=== PATIENT | male | born 1990 | race Caucasian/White ===

== ENCOUNTER 2016-09-27 13:06 | Emergency (ER) | payer OTHER ==
[2016-09-27 13:15] VITALS: BP 120/83
--- NOTE | 2016-09-28 04:56 | ED ---
Elena Rice Thomas, scribed for Sonya Caba MD on 09/27/16 at 1339 . Skin Complaint - HPI Summary HPI Summary: The pt is a 26 y/o M presenting to the ED s/p fyrite exposure to his bilateral forearms and L bicep today at 12:30. He was handling fyrite that was under pressure when a cap was bumped, causing the exposure. At the scene of the exposure, he irrigated the affected region with water for 10-15 minutes. He was wearing goggles, so there is no chance of eye exposure. He denies any ingestion of the fyrite. He was wearing latex gloves, so there is no chance of hand exposure. He takes melatonin occasionally. He denies any pain at this time. PMHx : otherwise healthy. PSHx: none. 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 FHx: HTN. Prior to evaluation of patient, poison control was called. They said that fyrite exposure only needs to be irritated with water. - History of Current Complaint Chief Complaint: EDGeneral Time Seen by Provider: 09/27/16 13:31 Stated Complaint: CHEMICAL EXPOSURE EVAUATION Hx Obtained From: Patient Onset/Duration: Started Hours Ago - 12:30 today, Resolved Skin Exposure Onset/Duration: Hours Ago Timing: Constant Onset Severity: Mild Current Severity: Mild Pain Intensity: 0 Pain Scale Used: 0-10 Numeric Skin Location: Arm - bilat forearm, L bicep Aggravating Symptom(s): Nothing Alleviating Symptom(s): Nothing Associated Signs & Symptoms: Rash, Tenderness Related History: Other: - POS: fyrite exposure - Allergy/Home Medications Allergies/Adverse Reactions: Allergies Allergy/AdvReac Type Severity Reaction Status Date / Time No Known Allergies Allergy Verified 06/10/16 13:23 PMH/Surg Hx/FS Hx/Imm Hx Previously Healthy: Yes Endocrine/Hematology History: Denies: Hx Diabetes Cardiovascular History: Denies: Hx Hypertension, Hx Pacemaker/ICD History: Denies: Hx Renal Disease Sensory History: Denies: Hx Hearing Aid Psychiatric History: Denies: Hx Panic Disorder Infectious Disease History: Denies: Traveled Outside the [place] in Last 30 Days - Family History Known Family History: Positive: Hypertension - Social History Occupation: Student Lives: Retirement - with 5 roomates Alcohol Use: Occasionally Substance Use Type: Reports: Marijuana - occasional Hx Tobacco Use: No Review of Systems Constitutional: Negative Negative: Fever Eyes: Negative ENT: Negative Cardiovascular: Negative Respiratory: Negative Gastrointestinal: Negative Genitourinary: Negative Musculoskeletal: Negative Positive: Rash - to bilateral forearms and L bicep Neurological: Negative Psychological: Normal All Other Systems Reviewed And Are Negative: Yes Physical Exam Triage Information Reviewed: Yes Vital Signs On Initial Exam: Initial Vitals Temp Pulse Resp BP Pulse Ox 98 F 60 17 120/83 100 09/27/16 13:11 09/27/16 13:11 09/27/16 13:11 09/27/16 13:11 09/27/16 13:11 Vital Signs Reviewed: Yes Appearance: Positive: Well-Appearing, No Pain Distress, Well-Nourished Skin: Positive: Warm, Skin Color Reflects Adequate Perfusion, Other - erythematous Rash to bilateral forearms and L bicep Head/Face: Positive: Normal Head/Face Inspection Eyes: Positive: Normal ENT: Positive: Normal ENT inspection Neck: Positive: Supple Respiratory/Lung Sounds: Positive: Clear to Auscultation, Breath Sounds Present , Other - No respiratory distress Cardiovascular: Positive: RRR, Pulses are Symmetrical in both Upper and Lower Extremities, Other - Brisk cap refill. Negative: Rub Abdomen Description: Positive: Nontender, No Organomegaly, Soft. Negative: Distended, Guarding, Hepatomegaly, McBurney's Point Tenderness, Peritoneal Signs , Splenomegaly Bowel Sounds: Positive: Present Musculoskeletal: Positive: Strength/ROM Intact, Other - redness to forearms and left bicep Neurological: Positive: Sensory/Motor Intact, Alert, Oriented to Person Place, Time, Speech Normal Psychiatric: Positive: Normal Diagnostics - Vital Signs Vital Signs Temp Pulse Resp BP Pulse Ox 09/27/16 13:11 98 F 60 17 120/83 100 - Laboratory Lab Statement: Any lab studies that have been ordered have been reviewed, and results considered in the medical decision making process. Course/Dx - Course Assessment/Plan: The pt is a 26 y/o M presenting to the ED s/p fyrite exposure to his bilateral forearms and L bicep today at 12:30. He was handling fyrite that was under pressure when a cap was bumped, causing the exposure. At the scene of the exposure, he irrigated the affected region with water for 10-15 minutes. He was wearing goggles, so there is no chance of eye exposure. He denies any ingestion of the fyrite. He was wearing latex gloves, so there is no chance of hand exposure. He takes melatonin occasionally. He denies any pain at this time. PMHx: otherwise healthy. PSHx: none. 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 FHx: HTN. Prior to evaluation of patient, poison control was called. Poison control said that fyrite exposure only needs to be irritated with water. Patients medication reviewed this visit. Patient is diagnosed with chemical skin burn. Patient will be discharged. Patient is agreeable with this plan. - Differential Diagnoses - Skin Complaint Differential Diagnoses: Allergic Reaction, Contact Dermatitis, Other - chemical burn - Diagnoses Provider Diagnoses: Superficial chemical burn of left forearm, Superficial chemical burn of right forearm, Superficial chemical burn of left upper arm Discharge - Discharge Plan Condition: Stable Disposition: HOME Patient Education Materials: Chemical Skin Burn (ED) Forms: *Work Release Referrals: Damaris Sue NP [Primary Care Provider] - Additional Instructions: Poison control has assured us that no further care is needed after your exposure to Fyrite today, after your water decontamination. Return to the ED if you have any new or worsening symptoms. The documentation as recorded by the Elena fuller Thomas accurately reflects the service I personally performed and the decisions made by , Sonya Caba MD.
== END 2016-09-27 14:20 | disposition home or self-care (01) ==
LOC: ED 13:06
DX: T22.012A Burn of unspecified degree of left forearm, initial encounter (principal); T22.011A Burn of unspecified degree of right forearm, initial encounter; T22.00XA Burn of unspecified degree of shoulder and upper limb, except wrist and hand, unspecified site, initial encounter; R21 Rash and other nonspecific skin eruption; T79.9XXA Unspecified early complication of trauma, initial encounter; X08.8XXA Exposure to other specified smoke, fire and flames, initial encounter; Y93.9 Activity, unspecified; Y92.9 Unspecified place or not applicable
CPT/HCPCS: 99281

== ENCOUNTER 2018-02-18 10:57 | Day surgery (SDC) | payer OTHER ==
[~2018-02-18 10:57] MED LIST: Buffered Lidocaine 0.9% SYRIN* 5 ML/SYR SYRINGE INTRADERM ONE; Lactated Ringers 1000 ML Bag* 1,000 ML IV SCH
[2018-02-18] MEDS ORDERED: ceFAZolin 2 GM PREMIX in ORs 2 GM/50 ML BAG IVPB ONE (11:44)
[2018-02-18] MEDS ORDERED: fentaNYL* 50 MCG/ML 2 ML VIAL (100 MCG VIAL) ONE (12:43)
[2018-02-18] MEDS ORDERED: Midazolam* 1 MG/ML 2 ML VIAL (2 MG) ONE (12:43)
[2018-02-18] MEDS ORDERED: Bupivacaine 0.25% SDV PF* 10 ML VIAL INJ ONE (13:10)
[2018-02-18] MEDS ORDERED: Lidocaine 2% PF * 5 ML VIAL ONE (13:37)
[2018-02-18] MEDS ORDERED: Ondansetron INJ* 2 MG/ML VIAL ONE (13:37)
[2018-02-18] MEDS ORDERED: Dexamethasone IV* 4 MG/ML 1 ML (4 MG) ONE (13:37)
[2018-02-18] MEDS ORDERED: Propofol* 10 MG/ML 20 ML BTL ONE (13:37)
[2018-02-18] MEDS ORDERED: fentaNYL* 50 MCG/ML 2 ML VIAL (100 MCG VIAL) IV PRN (13:52)
[2018-02-18] MEDS ORDERED: PROCHLORPERAZINE INJ 5 MG/ML 2 ML VIAL IV PRN (13:52)
[2018-02-18] MEDS ORDERED: HYDROmorphone INJ1* 1 MG/ML SYRINGE IV PRN (13:52)
[2018-02-18] MEDS ORDERED: Naloxone* 0.4 MG/ML 1 ML VIAL IV PRN (13:52)
[2018-02-18] MEDS ORDERED: Metoclopramide IV* 5 MG/ML 2 ML VIAL IV PRN (13:52)
[2018-02-18] MEDS ORDERED: Acetaminophen TAB* 325 MG PO PRN (13:52)
[2018-02-18] MEDS ORDERED: Ketorolac INJ* 30 MG/ML 1 ML VIAL IV PRN (13:52)
--- NOTE | 2018-02-18 14:45 | OP ---
Operative Report - Blank - Operative Report Date of Operation: 02/18/18 Note: PATIENT: Miki Allan DATE OF : 1990 DATE OF SURGERY: 02/18/2018 SURGEON: Gaetano Isbell MD NAIL TECH: VICKI Whyte, whos assistance was necessary for positioning, retraction, help with instrumentation, and closure. ANESTHESIOLOGIST: Kanchan Booth MD PREOPERATIVE DIAGNOSIS: Right foot painful accessory navicular POSTOPERATIVE DIAGNOSIS: Right foot painful accessory navicular OPERATION: Right foot Kidner procedure with excision of accessory navicular with advancement of the posterior tibial tendon ANESTHESIA: General LMA IMPLANTS: Arthrex Suturetak x2 TOURNIQUET TIME: Less than one hour, with a well-padded thigh tourniquet at 250 mmHg SPECIMENS: Accessory navicular bone to pathology ESTIMATED BLOOD LOSS: Minimal COMPLICATIONS: none STATUS: Stable from the operating room to the recovery room and then home. INDICATIONS FOR PROCEDURE: Miki has a painful accessory navicular bone. Both operative and non operative treatment alternatives were reviewed. Further, the nature and risks of surgery were reviewed in careful detail, in the office as well as the pre-operative holding area. Our discussions regarding the risks of surgery included, but were not limited to, infection, wound problems, nerve injury, neuroma, RSD, persistent symptoms, blood clot, failure of the surgery, and even the remote chance of catastrophic complication, including loss of limb. DESCRIPTION OF PROCEDURE: The patient was seen in the preoperative holding unit and informed written consent was obtained. The appropriate extremity was marked. The patient was then brought to the operating room and carefully positioned on the operating room table. Anesthesia was induced. All bony prominences were padded with great care. A well-padded thigh tourniquet was placed. A chlorhexidine based pre- scrub was performed followed by a chloraprep prep and drape in standard sterile fashion. A surgical safety pause was then conducted in which we confirmed the appropriate patient, extremity, planned procedure, availability of equipment, indication and administration of prophylactic antibiotics, and DVT prophylaxis in the form of a compression boot on the non-surgical extremity. We began with Esmarch exsanguination of the limb and inflated the tourniquet. A medial longitudinal incision was made centered at the medial prominence of the navicular. Careful blunt dissection was taken down to the layer of the posterior tibial tendon and periosteum. This layer was defined. An incision was made at the superior edge of the posterior tibial tendon and this was reflected in a subperiosteal manner plantarly. The periosteum superiorly was also reflected in a subperiosteal manner so as to expose the entire medial navicular. A small straight osteotome was then used to excise the accessory navicular as well as the prominent navicular medially. The edges were smoothed with a Rongeur and then the exposed cancellous bed was smooth with a rasp. No prominence was felt directly and also the soft tissues were provisionally tacked closed, and no prominence was felt on the skin. Fluoroscopy was then used to confirm adequate resection. Copious irrigation was then performed. Two Arthrex suturetaks were then placed under fluoroscopic guidance into the navicular. These had excellent purchase and I was able to lift the foot off the bed by pulling on the sutures. These sutures were then placed through the posterior tibial tendon and periosteum in a horizontal mattress fashion so as to advance the posterior tibial tendon to the new medial edge of the navicular bone. A 0 Vicryl suture was then used to perform a [id number] repair of the periosteum and posterior tibial tendon. At this point, we irrigated copiously and then closed in layers meticulously utilizing 3-0 Monocryl and 3-0 Nylon for the skin. A sterile dressing was then applied followed by a splint with the ankle in neutral position. The patient was then awakened from anesthesia and transferred to the recovery room in stable condition. There were no complications. All needle and sponge counts were correct at the end of the case. ATTESTATION: I attest I was present and scrubbed and performed the critical portions of the procedure myself. POSTOPERATIVE PLAN: Follow up will be in 2 weeks for likely suture removal and transition to a [id number]-[id number] short leg cast. We will plan on 6 weeks of lqu-kffotw-oeaozua and immobilization.
[2018-02-18 15:29] VITALS: BP 110/59
== END 2018-02-18 16:02 | disposition home or self-care (01) ==
LOC: OR 10:57
PROVIDERS: ATTEND Orthopaedic Surgery
DX: Q66.89 Other specified congenital deformities of feet (principal); I73.00 Raynaud's syndrome without gangrene; R55 Syncope and collapse
CPT/HCPCS: 88304; 88311; C1713; J0690; J1100; J2250; J2405; J2704; J3010; J3490

== ENCOUNTER 2018-10-10 07:03 | Emergency (ER) | payer OTHER ==
[2018-10-10 07:15] VITALS: BP 00/00
[2018-10-10] MEDS ORDERED: Rabies VIRUS VACCINE (RabAvert)* 2.5 UNITS VIAL IM ONE (07:21)
--- NOTE | 2018-10-10 07:26 | UC ---
Bite Injury/Animal HPI - HPI Summary HPI Summary: 28 yo male here for rabies shot Day #3 no complaints bat in bedroom - History of Current Complaint Chief Complaint: UCGeneralIllness Stated Complaint: POST EXPOSURE Time Seen by Provider: 10/10/18 07:14 Hx Obtained From: Patient Pain Intensity: 0 Pain Scale Used: 0-10 Numeric Onset/Duration: Other - NA Type of Bite: Animal - no bite noted, bat in Bed room Has Animal Been Immunized?: No Associated Signs And Symptoms: Positive: Negative Animal Available for Observation: No - Allergies/Home Medications Allergies/Adverse Reactions: Allergies Allergy/AdvReac Type Severity Reaction Status Date / Time No Known Allergies Allergy Verified 02/18/18 11:51 PMH/Surg Hx/FS Hx/Imm Hx Previously Healthy: Yes - Surgical History Surgical History: Yes Surgery Procedure, Year, and Place: 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 - Family History Known Family History: Positive: Hypertension - Social History Alcohol Use: Occasionally Alcohol Amount: 3-4 per week Substance Use Type: Marijuana Substance Use Comment - Amount & Last Used: 2x per week Smoking Status (MU): Never Smoked Tobacco Review of Systems All Other Systems Reviewed And Are Negative: Yes Constitutional: Positive: Negative Skin: Positive: Negative Eyes: Positive: Negative ENT: Positive: Negative Respiratory: Positive: Negative Cardiovascular: Positive: Negative Gastrointestinal: Positive: Negative Genitourinary: Positive: Negative Motor: Positive: Negative Neurovascular: Positive: Negative Musculoskeletal: Positive: Myalgia - thighs sore from TIG Neurological: Positive: Negative Psychological: Positive: Negative Physical Exam Triage Information Reviewed: Yes Appearance: Well-Appearing, No Pain Distress, Well-Nourished Vital Signs: Initial Vital Signs Temp 97.2 F 10/10/18 07:10 Pulse 57 10/10/18 07:10 Resp 16 10/10/18 07:10 BP 00/00 10/10/18 07:10 Pulse Ox 98 10/10/18 07:10 Vital Signs Reviewed: Yes Eyes: Positive: Conjunctiva Clear ENT: Positive: Hearing grossly normal. Negative: Nasal congestion, Nasal drainage, Trismus, Muffled voice, Hoarse voice Neck: Positive: Supple, Nontender, No Lymphadenopathy Respiratory: Positive: Lungs clear, Normal breath sounds, No respiratory distress Cardiovascular: Positive: RRR, No Murmur Musculoskeletal: Positive: ROM Intact, No Edema Neurological: Positive: Alert Psychological Exam: Normal Skin Exam: Normal Bite Injury Course/Dx - Differential Dx/Diagnosis Provider Diagnosis: Exposure to bat without known bite Discharge - Sign-Out/Discharge Documenting (check all that apply): Patient Departure All imaging exams completed and their final reports reviewed: No Studies - Discharge Plan Condition: Stable Disposition: HOME Patient Education Materials: Rabies Vaccine (By injection) Referrals: Janell Huang [Primary Care Provider] - Additional Instructions: follow up at [facility] as planned - Billing Disposition and Condition Condition: STABLE Disposition: Home
== END 2018-10-10 08:11 | disposition home or self-care (01) ==
LOC: UCEAST 07:03
DX: Z29.14 Encounter for prophylactic rabies immune globulin (principal)
CPT/HCPCS: 90471; 90675; 99211; G0463

== ENCOUNTER 2019-04-27 17:05 | Emergency (ER) | payer OTHER ==
--- OUTSIDE RECORDS SUMMARY | 2019-04-27 17:18 | XMS REPORT | Continuity of Care Document ---
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 Active Problems Provider Date Arthralgia of the pelvic region and thigh Gaetano Isbell MD Onset: 04/06/2019 Patellar tendonitis Gaetano Isbell MD Onset: 04/06/2019 Other specified congenital deformities of feet Gaetano Isbell MD Onset: 01/15 Dislocation of proximal interphalangeal joint of Dixon Castellano MD Onset: right ring finger, subsequent encounter Social History Type Date Description Comments Sex Unknown Smokeless Tobacco Never Used Smokeless Tobacco ETOH Use Occasionally consumes alcohol Tobacco Use Start: Unknown Patient has never smoked Recreational Drug Use Sporadically uses Marijuana Smoking Status Reviewed: 04/13/19 Patient has never smoked Exercise Type/Frequency Exercises regularly Allergies, Adverse Reactions, Alerts Description No Known Drug Allergies Medications Active Medications SIG Qnty Indications Ordering Provider Date Melatonin 3 mg as needed Unknown Immunizations Description No Information Available Vital Signs Date Vital Result Comment 04/13/2019 9:49am Height 72 inches 6'0" Weight 180.00 lb Heart Rate 50 /min BP Systolic 122 mmHg BP Diastolic 84 mmHg Respiratory Rate 12 /min Body Temperature 98.2 F Pain Level 1 BMI (Body Mass Index) 24.4 kg/m2 04/06/2019 2:34pm Height 72 inches 6'0" Weight 180.00 lb Heart Rate 64 /min Respiratory Rate 18 /min Pain Level 5 BMI (Body Mass Index) 24.4 kg/m2 Results Description No Information Available Procedures Description No Information Available Medical Devices Description No Information Available Encounters Type Date Location Provider Dx Diagnosis Office Visit 04/06/2019 [facility] Gaetano Isbell, M76.52 Patellar 2:30p at [place] tendinitis, left knee M25.552 Pain in left hip Assessments Date Code Description Provider 04/06/2019 M76.52 Patellar tendinitis, left knee Gaetano Isbell MD 04/06/2019 M25.552 Pain in left hip Gaetano Isbell MD Plan of Treatment No Information Available Functional Status Description No Information Available Mental Status Description No Information Available Referrals Description No Information Available
--- OUTSIDE RECORDS SUMMARY | 2019-04-27 17:18 | XMS REPORT | Continuity of Care Document ---
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 Active Problems Provider Date Arthralgia [...] Use Sporadically uses Marijuana Smoking Status Reviewed: 04/06/19 Patient has never smoked Exercise Type/Frequency Exercises regularly Allergies, Adverse Reactions, Alerts Description No Known Drug Allergies Medications Active Medications SIG Qnty Indications Ordering Provider Date Melatonin 3 mg as needed Unknown Immunizations Description No Information Available Vital Signs Date Vital Result Comment 04/06/2019 2:34pm Height 72 inches 6'0" Weight 180.00 lb Heart Rate 64 /min Respiratory Rate 18 /min Pain Level 5 BMI (Body Mass Index) 24.4 kg/m2 07/20/2018 8:51am Height 72 inches 6'0" Weight 175.00 lb Heart Rate 52 /min Respiratory Rate 14 /min Body Temperature 95.9 F BMI (Body Mass Index) 23.7 kg/m2 Results Description No Information Available Procedures Description No Information Available Medical Devices Description No Information Available Encounters Description No Information Available Assessments Date Code Description Provider 04/06/2019 M76.52 Patellar tendinitis, left knee Gaetano Isbell MD 04/06/2019 M25.552 Pain in left hip Gaetano Isbell MD Plan of Treatment 04/06/2019 - Gaetano Isbell, MDM76.52 Patellar tendinitis, left kneeFollow up: Follow Up: after testing / imaging is [id number] Pain in left hip Functional Status Description No Information Available Mental Status Description No Information Available Referrals Description No Information Available
--- NOTE | 2019-04-27 19:30 | ED ---
Throat Pain/Nasal Congestion - HPI Summary HPI Summary: 28 year old M arriving via private car to [facility] complains of blurred vision in bilateral eyes which started while going back to work from the gym today 2019 1550. Patient noticed that he wasn't able to read text messages on his phone. He states this episode lasted for 30-40 minutes. Patient also developed pressure in the back and left side of his head with the blurred vision. He states the headache has worsened since initial onset. Patient additionally complains of nausea/diarrhea x1 week. Patient denies cough, fever, chills, vomiting, abdominal pain, decreased appetite. He states his close friends have been diagnosed with influenza recently. The patient rates the pain 3/10 in severity. Symptoms aggravated by nothing. Symptoms alleviated by nothing. Medications reviewed. He states he takes melatonin 4-5 times a week and ibuprofen as needed. Patient did not take any ibuprofen today or any melatonin last night. He does not take any exercise supplements. He drinks 2 cups of coffee daily. Admits to marijuana. No tobacco. Occasional alcohol. Denies PMHx. FHx hypertension. Right foot surgery. He states he seeps 7 hours every night. No recent weight change. - History of Current Complaint Chief Complaint: EDEyeProblem Time Seen by Provider: 04/27/19 19:22 Hx Obtained From: Patient Onset/Duration: Lasting Minutes - 30-40, Resolved Severity: Mild - Allergies/Home Medications Allergies/Adverse Reactions: Allergies Allergy/AdvReac Type Severity Reaction Status Date / Time No Known Allergies Allergy Verified 04/27/19 17:13 Home Medications: Home Medications Melatonin 3 mg PO BEDTIME PRN 02/11/18 [History Confirmed 04/27/19] Ibuprofen TAB* [Motrin TAB* 600 MG] 600 mg PO Q6H PRN 10/31/18 [History Confirmed 04/27/19] PMH/Surg Hx/FS Hx/Imm Hx Endocrine/Hematology History: Denies: Hx Diabetes, Hx Thyroid Disease Cardiovascular History: Denies: Hx Hypertension, Hx Pacemaker/ICD Respiratory History: Reports: Other Respiratory Problems/Disorders - 2017 pneumonia Denies: Hx Asthma, Hx Chronic Obstructive Pulmonary Disease (COPD) GI History: Reports: Hx Crohn's Disease - not diagnosed, Hx Irritable Bowel - possible, not diagnosed Denies: Hx Ulcer History: Denies: Hx Renal Disease Sensory History: Reports: Hx Contacts or Glasses - contacts Denies: Hx Hearing Aid Opthamlomology History: Reports: Hx Contacts or Glasses - contacts Psychiatric History: Denies: Hx Panic Disorder - Surgical History Surgery Procedure, Year, and Place: 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 Hx Anesthesia Reactions: No Infectious Disease History: No Infectious Disease History: Denies: Hx Hepatitis, Hx Human Immunodeficiency Virus (HIV), Traveled Outside the [place] in Last 30 Days - Family History Known Family History: Positive: Hypertension - Social History Alcohol Use: Weekly Alcohol Amount: 3-4 per week Hx Substance Use: Yes Substance Use Type: Reports: Marijuana Substance Use Comment - Amount & Last Used: 2-3x per week Hx Tobacco Use: No Smoking Status (MU): Never Smoked Tobacco Review of Systems - ROS Summary Review of Systems Summary: Home Medications Medication Instructions Recorded Confirmed Type Melatonin 3 mg PO BEDTIME PRN 02/11/18 04/27/19 History Ibuprofen TAB* [Motrin TAB* 600 MG] 600 mg PO Q6H PRN 10/31/18 04/27/19 History Negative: Fever, Chills Positive: Blurred Vision Negative: Cough Gastrointestinal: Negative - decreased appetite Positive: Diarrhea, Nausea. Negative: Abdominal Pain, Vomiting Positive: Headache All Other Systems Reviewed And Are Negative: Yes Physical Exam - Summary Physical Exam Summary: General: Well-developed, Well-nourished MALE. No acute distress. He is mildly anxious appearing. HEENT: Normocephalic, Atraumatic. Eyes: Conjuctiva normal, PERRL. Oropharynx: Clear, mucous membranes moist, (-) exudates. Neck: Soft, FROM, (-) lymphadenopathy, (-) thyromegaly, (-) JVD. Cardiovascular: Normal sinus rhythm, (-) murmur. Lungs: Clear to auscultation bilaterally (-) wheezes, (-) rales, (-) rhonchi. Abdomen: Soft, non-tender, non-distended, (-) organomegaly, normal bowel sounds. Back: (-) CVA tenderness Extremities: No edema. Skin: Warm, dry, (-) rash. Neuro: Alert and oriented x3, moves all extremities equally. No ataxia. No gait disturbance. No sensory deficit. Normal strength, normal sensation. Psychiatric: Mood normal, affect normal. Triage Information Reviewed: Yes Vital Signs On Initial Exam: Initial Vitals Temp Pulse Resp BP Pulse Ox 98.3 F 77 17 120/84 100 04/27/19 17:07 04/27/19 17:07 04/27/19 17:07 04/27/19 17:07 04/27/19 17:07 Vital Signs Reviewed: Yes Procedures - Sedation Patient Received Moderate/Deep Sedation with Procedure: No Diagnostics - Vital Signs Vital Signs Temp Pulse Resp BP Pulse Ox 04/27/19 18:37 76 97 04/27/19 17:07 98.3 F 77 17 120/84 100 - Laboratory Result Diagrams: 04/27/19 20:52 04/27/19 20:52 Lab Statement: Any lab studies that have been ordered have been reviewed, and results considered in the medical decision making process. - CT Brain CT Interpretation Completed By: Radiologist - No acute intracranial abnormality. ED physician has reviewed this imaging report. Re-Evaluation - Re-Evaluation First Eval Re-Evaluation Time: 21:59 Comment: I have discussed results with the patient and his headache has resolved. Discussed symptoms that warrant immediate return to ED. EENT Course/Dx - Course Course Of Treatment: 28-year-old male presents with complaints of visual loss and head pressure. After working out at the gym he went to leave and go back to his office. Certainly had part of his vision go blank. He states it was on the right side but if he closed his right eye he maintained a defect to the right even with his left eye. He states that lasted about 20 minutes or so. He did have pressure in his left posterior head at the same time. When the visual disturbance left his pressure in his head got worse. He did not take anything for it. Never had anything like this before. He has had mild illness recently including nausea and diarrhea. States he's been around people with the flu." Physical exam he has no obvious visual field defects at this time. Pupils equal round reactive to light, extraocular muscles intact. no papilledema. No other neurological findings. Workup demonstrates no significant laboratory abnormalities. CT brain normal. Patient was given ibuprofen and Zofran. Complete resolution of his headache. Patient discharged home. Follow up PCP. Follow-up sooner for any worsening symptoms. - Diagnoses Provider Diagnoses: Migraine with visual aura Discharge ED - Sign-Out/Discharge Documenting (check all that apply): Patient Departure - Discharge Plan Condition: Stable Disposition: HOME Patient Education Materials: Migraine Headache (ED) Referrals: Janell Huang [Primary Care Provider] - 3 Days Additional Instructions: Please follow up with your primary care physician within 3 days. Please return to Emergency Department immediately if symptoms return or for any new or worsening symptoms. - Billing Disposition and Condition Condition: STABLE Disposition: Home - Attestation Statements Document Initiated by Scribe: Yes Documenting Scribe: Delma Cardona Provider For Whom Eladio is Documenting (Include Credential): Qing Brewer MD Scribe Attestation: Delma Rice, scribed for Qing Brewer MD on 04/28/19 at 0247. Scribe Documentation Reviewed: Yes Provider Attestation: The documentation as recorded by the Delma fuller accurately reflects the service I personally performed and the decisions made by , Qing Brewer MD Status of Scribe Document: Viewed
[2019-04-27] MEDS ORDERED: Ondansetron ODT TAB* 4 MG SL PRN (20:25)
[2019-04-27] MEDS ORDERED: Ibuprofen TAB* 400 MG PO ONE (20:25)
[2019-04-27 20:59] LABS: ABS Basophils 0.1 10^3/ul (0-0.2); ABS Eosinophils 0.2 10^3/ul (0-0.6); ABS Lymphocytes 2.1 10^3/ul (1.0-4.8); ABS Monocytes 0.6 10^3/ul (0-0.8); Eosinophil % 2.4 %; Hematocrit 47 % (42-52); Hemoglobin 16.6 g/dL (14.0-18.0); Lymphocyte % 30.3 %; Mean Corpuscular HGB Conc 35 g/dL (31-36); Mean Corpuscular Hemoglobin 31 pg (27-31); Mean Corpuscular Volume 88 fL (80-94); Mean Platelet Volume 7.9 fL (7.4-10.4); Platelet Count 208 10^3/uL (150-450); Red Blood Count 5.34 10^6 /uL (4.18-5.48); Red Cell Distribution Width 13 % (10-15); White Blood Count 6.9 10^3/uL (3.5-10.8)
[2019-04-27 21:04] LABS: INR 1.27 (0.82-1.09)
[2019-04-27 21:15] LABS: Albumin 5.1 g/dL (3.2-5.2); Albumin/Globulin Ratio 2.1 (1-3); EGFR African American 117.4 (>60); Globulin 2.4 g/dL (2-4); Potassium 3.3 mmol/L (3.5-5.0); Total Bilirubin 0.8 mg/dL (0.2-1.0); Total Protein 7.5 g/dL (6.4-8.9)
[2019-04-27 21:22] LABS: Influenza A Molecular Negative (Negative); Influenza B Molecular Negative (Negative)
[2019-04-27 21:23] LABS: Urine Appearance Clear; Urine Bilirubin Negative (Negative); Urine Blood Negative (Negative); Urine Color Yellow; Urine Glucose Negative (Negative); Urine Ketones Trace (Negative); Urine Nitrite Negative (Negative); Urine Protein Negative (Negative); Urine Specific Gravity 1.008 (1.010-1.030); Urine Urobilinogen Negative (Negative)
[2019-04-27 21:37] LABS: Urine Benzodiazepine Screen None Detected (None Detect); Urine Opiates Screen None Detected (None Detect)
[2019-04-27 21:43] LABS: TSH (Thyroid Stimulating Horm) 1.42 mcIU/mL (0.34-5.60)
[2019-04-27 22:04] VITALS: BP 115/78
== END 2019-04-27 22:04 | disposition home or self-care (01) ==
LOC: ED 17:05
DX: G43.109 Migraine with aura, not intractable, without status migrainosus (principal)
CPT/HCPCS: 36415; 70450; 80053; 80307; 81003; 83605; 84443; 85025; 85610; 99283; A9270-GY; G0480